=== PATIENT | female | born 1990 | race Caucasian/White ===

== ENCOUNTER 2017-02-20 17:19 | Inpatient (IN) | payer OTHER ==
--- NOTE | ~2017-02-20 | DS ---
Unit #: [id number] #: [id number] Patient: DEENA FRANCO [id number] [facility] [address] [place] [address] [id number] MR#: [id number] NAME: DEENA FRANCO [facility]OM: [facility] Age: 26 Sex: F Admission Date: 02/20/2017 : 1990 Discharge Date: 02/22/2017 Attending Physician: Maurisio Louis M.D. Primary Care Physician: Primary Care Physician No DISCHARGE SUMMARY REASON FOR ADMISSION The patient is a 26-year-old white female, admitted to the [facility] unit complaining of depressed mood, suicidal ideation, and self-mutilatory behavior. HOSPITAL COURSE The patient was admitted to the [facility] unit and placed on suicide precautions. Given the fact that she had previously failed trials of Effexor, Prozac, and Zoloft. She was begun on Viibryd 10 mg daily which she tolerated without complaint. P.r.n. Ambien and Ativan were also prescribed for sleep and anxiety respectively. The patient showed significant brightening of mood by 02/22/2017 and requested discharge. She was in agreeable with plan for followup in the intensive outpatient program provided by this facility. As per her request, discharge was ordered. FINAL DIAGNOSES Major depressive disorder, recurrent, moderate; borderline personality traits. DISPOSITION ON DISCHARGE The patient is discharged on the following medications: Viibryd 10 mg x7 days, then 20 mg daily for depression; Ambien 5 mg at h.s. p.r.n. insomnia; and Ativan 0.5 mg q.6 hours p.r.n. anxiety. DISCHARGE INSTRUCTIONS No dietary or physical restrictions were placed upon the patient at the time of discharge. FOLLOWUP She will follow up through the auspices of the intensive outpatient program provided by this facility and community mental health resources [facility]. PROGNOSIS The patient's prognosis is considered good. Dictated by... Maurisio Louis M.D. INGRID/brittney Unit #: [id number] #: [id number] Patient: DEENA FRANCO TD: 02/22/2017 18:40 JOB #: [id number] DISCHARGE SUMMARY Page 1 of 1 X Maurisio Louis MD DISCHARGE SUMMARY
--- NOTE | ~2017-02-20 | PA ---
Unit #: [id number] #: [id number] Patient: DEENA FRANCO [id number] [place] [address] [id number] MR#: [id number] NAME: EDENA FRANCO. ROOM: P261 Age: 26 Sex: F Admission Date: 02/20/2017 : 1990 Date of Assessment: 02/21/2017 Attending Physician: Maurisio Louis M.D. Admitting Physician: Maurisio Louis M.D. Primary Care Physician: Primary Care Physician No PSYCHIATRIC ASSESSMENT IDENTIFYING INFORMATION The patient is a 26-year-old single white female admitted with increasing anxiety, self-mutilatory behavior, depression and anxiety. INFORMANT(S) Patient. RELIABILITY Good. CHIEF COMPLAINT None given. HISTORY OF PRESENT ILLNESS The patient is a 26-year-old single white female who reports no prior history of inpatient psychiatric care. She has been treated in the past with Effexor, Prozac and Zoloft but reports no response to these medications. The patient reports that approximately 1 month ago she learned that her mother who has severe heart disease may have only "5 years to live." The patient reports that since that time she has had increasing anxiety often reaching a point where she has to pull her car off to the side of the road feeling as though her heart will "explode out of her chest." The patient reports some suicidal ideation and has been engaging in some self-mutilatory behavior. She complains of poor sleep. She denies any loss of appetite. She denies abuse of any psychoactive substances. She has never been psychiatrically hospitalized. She was scheduled for medication evaluation at [facility] but had missed that appointment. Her other psychiatric medications were prescribed by her primary care physician. She denies use of any alcohol, tobacco or street drugs. PAST PSYCHIATRIC HISTORY As above. FAMILY HISTORY The patient reports that her father's side of the family suffered from significant degree of psychiatric illness. SOCIAL HISTORY The patient lives with her mother and 3 children. She does not work outside the home. There is no reported use of alcohol, tobacco or street drugs. Unit #: [id number] #: [id number] Patient: DEENA FRANCO MEDICAL HISTORY Noncontributory. MENTAL STATUS EXAM At this time, reveals the patient to be a well-developed, well-nourished white female appearing her stated age. She is in no apparent physical distress at the time of examination. She is awake, alert, oriented in all spheres. Her mood is mildly dysphoric. Her affect congruent. Speech is generally relevant and coherent. There are no gross deficits in memory or cognition noted. Intelligence is judged to be in the average range based on fund of knowledge. The patient is cooperative throughout the interview. She denies current suicidal/homicidal ideation or psychotic features. Judgement and insight intact. ASSETS AND LIABILITIES Patient's assets, motivation for change. Liabilities, lack of resources. ADMITTING DIAGNOSES 1. Panic disorder with agoraphobia. 2. Major depressive disorder, recurrent, moderate. 3. Borderline personality traits. PSYCHIATRIC PLAN/TREATMENT GOALS The patient remains hospitalized for safety and stabilization. A trial of vilazodone 10 mg daily will be initiated given the patient's history of lack of response to Effexor as well as to selective serotonin reuptake inhibitors, namely Prozac and Zoloft. The patient will participate in appropriate martin and milieu activities and p.r.n. Ativan and Ambien will be added given the patient's complaints of severe anxiety and poor sleep. ESTIMATED LENGTH OF STAY Two to three days with followup to take place in the intensive outpatient program provided by this facility. Dictated by... Maurisio Louis M.D. INGRID/alvarez TD: 02/21/2017 15:05 JOB #: [id number] PSYCHIATRIC ASSESSMENT Page 1 of 1 X Maurisio Louis MD X PSYCHIATRIC ASSESSMENT
--- NOTE | ~2017-02-20 | HP ---
Unit #: [id number] #: [id number] Patient: SRAVANI FRANCO [id number] [place] [address] [id number] MR#: [id number] NAME: SRAVANI FRANCO ROOM: P261 Age: 26 Sex: F Admission Date: 02/20/2017 : 1990 Attending Physician: Maurisio Louis M.D. Admitting Physician: Maurisio Louis M.D. Primary Care Physician: Primary Care Physician No HISTORY AND PHYSICAL HISTORY OF PRESENT ILLNESS Sravani is a 26 year old admitted to [address] [place] [address] with increased depression, anxiety and self-harming behavior. PAST MEDICAL HISTORY Obesity. PAST SURGICAL HISTORY 1. x1. 2. Tubal ligation. ALLERGIES No known drug allergies. SOCIAL HISTORY She denies cigarettes, alcohol and illicit drug use. FAMILY HISTORY Medically noncontributory. REVIEW OF SYSTEMS CONSTITUTIONAL: No fever or chills. HEENT: Denies any sore throat, ear pain or runny nose. CARDIOVASCULAR: Denies chest pain, irregular heart rhythm or palpitations. CHEST: Denies shortness of breath or cough. No hemoptysis. GASTROINTESTINAL: Denies nausea, vomiting, diarrhea or chronic constipation. ENDOCRINE: Denies history of increased thirst or urination. No recent significant weight loss or gain. GENITOURINARY: Denies dysuria, frequency, or hematuria. SKIN: Denies any rashes. HEMATOLOGIC: Denies history of increased bleeding or bruising. MUSCULOSKELETAL: Denies any hot, swollen joints. No generalized muscle pain. NEUROLOGIC: Denies problems with vision or speech. No frequent, severe headaches. No numbness, tingling or weakness in any extremities. Denies loss of bladder or bowel control. CURRENT MEDICATIONS 1. Ambien 5 mg q.h.s. p.r.n. 2. Ativan p.r.n. 3. Viibryd 10 mg daily. 4. Melatonin 6 mg q.h.s. p.r.n. Unit #: [id number] #: [id number] Patient: SRAVANI FRANCO 5. Milk of Magnesia p.r.n. 6. Maalox p.r.n. 7. Tylenol p.r.n. PHYSICAL EXAMINATION GENERAL: Alert, obese, no apparent distress. VITAL SIGNS: Blood pressure 130/84, heart rate 88, respirations 16, temperature 98.6. WEIGHT: 180. HEIGHT: 5 feet 2 inches. SKIN: Warm and dry without rash. She has multiple linear scratches along both anterior forearms. These areas have scabbed over. There is no increased redness, swelling, heat or pus noted. HEENT: Normocephalic. TMs not viewed. Oral and nasal passages clear. Conjunctivae clear. PERRLA. EOMs intact. NECK: Supple without lymphadenopathy or thyromegaly. HEART: Regular rate and rhythm without murmur. LUNGS: Clear. ABDOMEN: Soft, nontender. : Not done. EXTREMITIES: No evidence of cyanosis, clubbing or edema. Moves all without focal deficit. NEUROLOGICAL: Grossly within normal limits. Cranial Nerves: II: Visual huizar are intact. III, IV AND : Extraocular movements are intact. Pupils are equal, round and reactive to light. V: Facial sensation is grossly normal. VII: Facial movements and expression are normal. VIII: Auditory acuity grossly intact. IX, X: Uvula is midline. Phonation is normal. XI: Patient shrugs shoulders and turns head normally. XII: Tongue protrudes in the midline. Sensory and Motor Function: Sensory and motor sensation is grossly normal. Motor: moves all extremities well. Coordination: Gait is normal. Deep Tendon Reflexes: Intact. IMPRESSION 1. Psychiatric admission. 2. Self-harming behavior sustained prior to this admission. RECOMMENDATIONS PSYCHIATRIC: Per psychiatrist. MEDICAL: See no contraindications to participate in facility's activities. MEDICAL PROGNOSIS Good. MEDICAL CONDITION Stable. Dictated by... Liza Haile P.A.-C. for Callie Watkins/alvarez Unit #: [id number] #: [id number] Patient: SRAVANI FRANCO TD: 02/21/2017 17:20 JOB #: [id number] HISTORY AND PHYSICAL Page 1 of 1 X Liza Haile HISTORY AND PHYSICAL
[2017-02-22 09:51] LABS: BASOPHIL# 0.1 X10e3 (0-0.3); BASOPHIL% 1.1 % (0-2.5); EOSINOPHIL# 0.3 X10e3 (0-0.7); EOSINOPHIL% 4.4 % (0.0-7.0); HEMATOCRIT 40.8 % (35.0-45.0); HEMOGLOBIN 13.7 gm/dL (12.0-16.0); LYMPHOCYTE# 2.3 X10e3 (1.0-3.5); LYMPHOCYTE% 37.3 % (17.0-45.0); MEAN CELL VOLUME 92.1 FL (83-96); MEAN CORPUSCULAR HEMOGLOBIN 30.9 PG (28-34); MEAN CORPUSCULAR HGB CONC 33.6 g/dL (30-36); MEAN PLATELET VOLUME 9.6 FL (6.5-11.5); MONOCYTE# 0.6 X10e3 (0-1.0); MONOCYTE% 9.1 % (3.0-12.0); NEUTROPHIL% 48.1 % (40-75); PLATELET COUNT 282 X10e3 (140-420); RED BLOOD COUNT 4.42 X10e (3.90-5.30); RED CELL DISTRIBUTION WIDTH 12.5 % (11.0-15.5); WHITE BLOOD COUNT 6.3 X10e3 (4.0-10.5)
[2017-02-22 10:04] LABS: DIFF IND NO
[2017-02-22 10:27] LABS: THYROID STIMULATING HORMONE 0.66 uIU/ml (0.34-5.60)
[2017-02-22 10:34] LABS: FREE THYROXIN (T4) 1.06 ng/dL (0.58-1.64)
[2017-02-22 10:39] LABS: ALBUMIN SERUM 4.4 g/dL (3.5-5.0); BILIRUBIN,TOTAL 0.8 mg/dL (0.2-2.0); CALCIUM SERUM 9.2 mg/dL (8.4-10.2); CREATININE SERUM 0.7 mg/dL (0.6-1.4); GLOM FILT RATE Estimated 119.6 mL/min (>60); POTASSIUM 4.4 mmol/L (3.5-5.1); PROTEIN TOTAL SERUM 7.3 g/dL (6.0-8.3)
== END 2017-02-22 14:00 | disposition home or self-care (01) | DRG 885 ==
LOC: P2L 19:59
PROVIDERS: Specialist
DX: F33.1 Major depressive disorder, recurrent, moderate (principal); R45.851 Suicidal ideations; F40.01 Agoraphobia with panic disorder; F60.3 Borderline personality disorder; Z81.8 Family history of other mental and behavioral disorders; Z91.5 Personal history of self-harm; Z98.51 Tubal ligation status; E66.9 Obesity, unspecified; Z68.32 Body mass index [BMI] 32.0-32.9, adult
CPT/HCPCS: 80053; 84439; 84443; 84703; 85025